=== PATIENT | male | born 1970 | race Caucasian/White ===

== ENCOUNTER 2020-03-18 10:38 | Emergency (ER) | payer OTHER ==
[~2020-03-18] VITALS: Ht 177.8 cm; Wt 70.3 kg
[~2020-03-18 10:38] MED LIST: LEVAQUIN 750 M750 MG PO; MUCINEX600 MG PO; NOHOMEMEDICATIONS; TESSALON PERLE100 MG PO
[2020-03-18 12:01] VITALS: BP 140/80
== END 2020-03-18 12:01 | disposition home or self-care (01) ==
LOC: M.ERS 10:38
DX: R51 Headache (principal); F17.210 Nicotine dependence, cigarettes, uncomplicated